=== PATIENT | male | born 1975 | race Caucasian/White ===

== ENCOUNTER 2018-12-29 19:05 | Emergency (ER) | payer OTHER ==
[~2018-12-29] VITALS: Ht 172.7 cm; Wt 97.5 kg
[~2018-12-29 19:05] MED LIST: CRUTCH1 EACH; IBUPROFEN600 MG PO; NAPROXEN375 MG PO; NORCO 7.5-3251 EACH PO; PERCOCET 5-3251 EACH PO; SUDAFED 12-HOU120 MG PO; TAMIFLU75 MG PO
[2018-12-29] MEDS ORDERED: ACETAMINOPHEN500 MG PO (19:41)
[2018-12-29] MEDS ORDERED: ALEVE220 MG PO (19:42)
[2018-12-29] MEDS ORDERED: NORCO 5-325 TA1 EACH PO (20:16)
[2018-12-29] MEDS ORDERED: CYCLOBENZAPRINE10 MG PO (20:16)
[2018-12-29] MEDS ORDERED: PREDNISONE20 MG PO (20:17)
== END 2018-12-29 20:33 | disposition home or self-care (01) ==
LOC: ED 19:05
DX: M54.12 Radiculopathy, cervical region (principal); F17.200 Nicotine dependence, unspecified, uncomplicated; Z79.899 Other long term (current) drug therapy
CPT/HCPCS: 99283; J7512

== ENCOUNTER 2020-12-03 09:45 | Day surgery (SDC) | payer OTHER ==
[~2020-12-03] VITALS: Ht 172.7 cm; Wt 104.5 kg
[~2020-12-03 09:45] MED LIST changes: +ACETAMINOPHEN500 MG PO; +ALEVE220 MG PO; +CYCLOBENZAPRINE10 MG PO; +FOLIC ACID1 MG PO; +HUMIRA40 MG/0.4 SQ; +METHOTREXATE2.5 MG PO; +NORCO 5-325 TA1 EACH PO; +PREDNISONE20 MG PO; +ROPINIROLE HC0.25 MG PO
--- NOTE | 2020-12-03 11:31 | NUR ---
PT RESTING IN BED WITH EYES CLOSED, WAKES WITH VERBAL AROUSAL. PT SPOUSE NO LONGER AT BEDSIDE. PT DENIES ANY NEEDS AT THIS TIME.
--- NOTE | 2020-12-03 13:02 | NUR ---
12/03/20 1302 Chayo Joyce 1249- PT TO PACU IN SF POSITION. EYES CLOSED DOES NOT RESPOND TO VERBAL TO TACTILE STIMULI. PT REQUIRES JAW THRUST TO PROMOTE EVEN RESPIRATION. SPO2 >95% ON NRB MASK. 1256- PT RESPONDS TO VERBAL AND TACTILE STIMULI. CONTINUES TO REQUIRE JAW THURST TO PROMOTE VENTILLATION. SPO2 >95% ON NRB MASK. 1302- PT OPENS EYES AND FOLLOWS COMMANDS. REMAINS DROWSY. PT ENCOURAGED TO TAKE DEEP BREATHS. COUGHING INTERMITTANT. SPO2 >95%. O2 TITRATED DOWN TO ROOM AIR.
--- NOTE | 2020-12-03 13:44 | NUR ---
PT ARRIVES TO PACU AWAKE AND ALERT, POSITIONED LEFT LATERAL. PT DENIES ANY PAIN IN SURGICAL SITE. PT DENIES NAUSEA, WATER PROVIDED ON BEDSIDE TABLE. DC CRITERIA EXPLAINED TO PT, SIG OTHER AT BEDSIDE. CALL LIGHT WITHIN REACH.
--- NOTE | 2020-12-03 14:33 | NUR ---
PT USES CALL LIGHT TO NOTIFY RADIO TESTER OF URGE TO VOID. PT UP TO BATHROOM WITH RN ASSIST, STEADY GAIT DENIES ANY DIZZINESS OR NAUSEA. PT ABLE TO VOID 650 MLS YELLOW URINE WITH NO PROBLEMS. PT BACK TO DS RM 3, SITS AT SIDE OF BED TO EAT PUDDING. CALL LIGHT WITHIN REACH, SPOUSE AT BEDSIDE.
--- NOTE | 2020-12-03 14:40 | NUR ---
PT TOLERATES PO WELL WITH NO COMPLAINTS OF NAUSEA. PT WOULD LIKE TO DC HOME AT THIS TIME, DC CRITERIA MET. PT DRESSES SELF WITH SPOUSE IN RM, ENCOURAGED TO OPEN CURTAIN WHEN FINISHED. 1455: DC INSTRUCTIONS PRESENTED TO PT AND SPOUSE, PAIN PRESCRIPTION PROVIDED IN DC PACKET. PT PROVIDED WITH NS FLUSHES, GAUZE, ABD PAD AND MESH BRIEFS FOR FIRST DRESSING CHANGE UNTIL ABLE TO PURCHASE SUPPLIES. PT DC VIA WC TO PERSONAL VEHICLE HOME WITH SPOUSE.
--- NOTE | 2020-12-04 07:42 | OR ---
[facility] [address] [place], [place] [address] Signed DATE OF OPERATION: 12/03/2020 SURGEON: Ya Evans MD PREOPERATIVE DIAGNOSIS: Recurrent pilonidal cyst. POSTOPERATIVE DIAGNOSIS: Recurrent pilonidal cyst. PROCEDURE: Pilonidal cystectomy. ESTIMATED BLOOD LOSS: None. 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 He has had trouble with a recurring pilonidal cyst. He had it lanced in August 2020 in the office. His helped and packed the area and it did improve; however, the last two weeks it came back and finally it burst opened today prior to coming to the office. He had been to his primary care provider, who asked him to come see me urgently in the office. I offered to do a surgery the following day, but he needed to fulfill some business commitments. Consequently, we brought him in the following week. It has continued to drain just a little, but otherwise he does not have any surrounding cellulitis. One can easily see several pits in their usual position near the tip of the coccyx. I could see the previous scar from his incision and drainage. Then, he has two additional pits cephalad to that area. I explained to Clarence the nature of a pilonidal cyst. He understands I have to follow those sinus tracts and excise them completely. Unfortunately, that is going to make his incision about twice as long as normal. He understands we are not going to close this incision, particularly with respect to his rheumatoid arthritis and his need for immunosuppression. His will help him with normal saline soaked gauze twice a day until it heals secondarily over 6-8 weeks. He understands despite surgery, they do have a tendency to recur. There is the risks including, but not limited to bleeding, infection, scarring, change in contour of the skin as well as recurrent pilonidal cyst. He had expressed understanding and wished to proceed. DESCRIPTION OF PROCEDURE: I met with Laura in our preop area. His had gone home. We confirmed his surgery Electronically Signed By: YA EVANS MD 12/04/20 0742 PATIENT NAME: LAURA KATZ OPERATIVE REPORT DATE OF : 77 REPORT #: [id number] PHYSICIAN: YA EVANS MD PCP: ALEXI DEL RIO MD REPORT IS CONFIDENTIAL AND NOT TO BE RELEASED WITHOUT AUTHORIZATION [facility] [address] [place] [id number] Signed for the pilonidal cyst. We confirmed we are going to leave that open to heal in secondarily with the help of his for the wound packing. After this, he was taken into the operating room and placed in the prone laura-knife position under general endotracheal tube anesthesia. He was given preoperative antibiotics along with subcutaneous heparin. SCDs were utilized. He was then prepped and draped in the usual sterile fashion. We could see the traditional pits over the tip of the coccyx. We could see the scar from his previous incision and drainage. Then, two additional pits cephalad in the gluteal crease. He had hair involved in the pits. We did shave back all the hair. We used a #15 blade knife to make an elliptical incision to include all the pits. We went around these with the help of our cautery. Fortunately, the sinus tract did not travel off to the side any significant degree. Therefore, the incision was about twice as long as normal, but it was the same width. The surrounding fat was quite healthy without any induration. The wound was infiltrated with local anesthetic. The wound was irrigated and suctioned out until clear. The wound was packed with saline soaked gauze and covered with dry gauze and mesh underwear. Laura was then rotated into the supine position onto his hospital bed, weaned from his anesthesia, extubated in the OR, and taken to the recovery room in stable condition. Ya Evans MD ALB/MODL /[id number] cc: MD Alexi Contreras MD Copies: YA EVANS MD, RUSSELL BARR MD ~ Electronically Signed By: YA EVANS MD 12/04/20 0742 PATIENT NAME: LAURA KATZ OPERATIVE REPORT DATE OF : 77 REPORT #: [id number] PHYSICIAN: YA EVANS MD PCP: ALEXI DEL RIO MD REPORT IS CONFIDENTIAL AND NOT TO BE RELEASED WITHOUT AUTHORIZATION
--- NOTE | 2020-12-08 11:01 | PATH ---
[facility] [address] [place], [place] [address] Signed SPECIMEN(S): A PILONIDAL CYST SPECIMEN SOURCE: A. PILONIDAL CYST CLINICAL HISTORY: Pilonidal cyst. FINAL PATHOLOGIC DIAGNOSIS: Designated "pilonidal cyst", excision: - Pilonidal sinus/cyst with evidence of prior rupture. NAL:cml:C2NR MICROSCOPIC EXAMINATION: Histologic sections of all submitted blocks are examined by light microscopy. These findings, together with the gross examination, support the pathologic diagnosis. GROSS DESCRIPTION: The specimen, labeled "GLENN,, A," and designated on the requisition "pilonidal cyst," is received in formalin and consists of martinez elliptical skin with attached subcutaneous tissue measuring 6.5 x 1.5 x 1.6 cm. Specimen is serially sectioned revealing identified sinus tract containing hair and pus. [facility] Director sections are submitted in cassette (A1-A2). AT (under the direct supervision of a pathologist) The Gross Description was prepared using a voice recognition system. The report was reviewed for accuracy; however, sound-alike word errors, addition and/or deletions may occur. If there is any question about this report, please contact Client Services. PERFORMING LABORATORY: The technical component was performed by [employer], [address] [place] [id number] (Registry Nurse: Magy Ziegler MD; CLIA# [id number]). [facility], [address] [address] (CLIA# [id number]). Diagnostician: Karla Maier MD Pathologist Electronically Signed 12/08/2020 PATIENT NAME: LAURA KATZ PATHOLOGY DATE OF : 77 REPORT #: [id number] PHYSICIAN: [facility] PCP: ALEXI DEL RIO MD REPORT IS CONFIDENTIAL AND NOT TO BE RELEASED WITHOUT AUTHORIZATION [address] [address] Signed Copies: ~ PATIENT NAME: LAURA KATZ PATHOLOGY DATE OF : 77 REPORT #: [id number] PHYSICIAN: [facility] PCP: ALEXI DEL RIO MD REPORT IS CONFIDENTIAL AND NOT TO BE RELEASED WITHOUT AUTHORIZATION
== END 2020-12-03 15:05 | disposition home or self-care (01) ==
LOC: DS 09:45
PROVIDERS: ATTEND Colon & Rectal Surgery
PROC: 0HB8XZZ Excision of Buttock Skin, External Approach (ICD-10-PCS; principal; 2020-12-03 11:30)
DX: L05.91 Pilonidal cyst without abscess (principal); M06.9 Rheumatoid arthritis, unspecified; F17.210 Nicotine dependence, cigarettes, uncomplicated
CPT/HCPCS: 00300; 88304; J0330; J0690; J1100; J1644; J1885; J2250; J2405; J2704; J2765; J3010; J7121

== ENCOUNTER 2022-09-18 11:43 | Emergency (ER) | payer OTHER ==
[~2022-09-18] VITALS: Ht 172.7 cm; Wt 99.8 kg
[2022-09-18] MEDS ORDERED: METHOCARBAMOL500 MG PO (12:11)
== END 2022-09-18 12:22 | disposition home or self-care (01) ==
LOC: ED 11:43
DX: S33.5XXA Sprain of ligaments of lumbar spine, initial encounter (principal); X50.0XXA Overexertion from strenuous movement or load, initial encounter; Y99.0 Civilian activity done for income or pay; F17.200 Nicotine dependence, unspecified, uncomplicated; Z79.899 Other long term (current) drug therapy
CPT/HCPCS: 99283-25